=== PATIENT | female | born 1985 | race Caucasian/White ===

== ENCOUNTER 2017-01-18 10:26 | Emergency (ER) | payer OTHER ==
[~2017-01-18] VITALS: Ht 165.1 cm; Wt 89.0 kg
[~2017-01-18 10:26] MED LIST: AMOXICILLIN500 MG PO; METFORMIN HCL500 MG PO; PERCOCET 5/31 TABLET PO; PHENTERMINE H37.5 MG PO; VITAMIN D
[2017-01-18 11:45] LABS: HEMATOCRIT 43.2 % (36.0-46.0); MCH 29.9 PG (29.0-34.0); MCHC 31.9 G/DL (30.0-36.0); MCV 93.5 FL (83-99); MEAN PLAT.VOLUME 11.5 uM^3 (9.5-12.4); PLATELET COUNT 203 K/uL (156-360); RBC DIS.WIDTH-SD 41.5 % (39-53); RED BLOOD COUNT 4.62 M/uL (3.80-5.20); WHITE BLOOD COUNT 5.1 K/uL (4.1-10.2)
[2017-01-18 11:53] LABS: ADD MIUA? YES; BILIRUBIN NEGATIVE; BLOOD NEGATIVE; COLOR YELLOW ((YELLOW)); GLUCOSE (STRIP) NEGATIVE; INTERNAL CONTROL VALID? YES; KETONES NEGATIVE; LEUKOCYTES MODERATE; NITRITE NEGATIVE; PROTEIN (STRIP) NEGATIVE; SPECIFIC GRAVITY 1.014 (1.000-1.030); UROBILINOGEN 0.2 MG/DL (0.2-1.0)
[2017-01-18 11:55] LABS: CHLORIDE 107 mEq/L (99-109)
[2017-01-18 11:56] LABS: POTASSIUM 4.7 mEq/L (3.7-5.4); SODIUM 143 mEq/L (136-147)
[2017-01-18 11:58] LABS: GLUCOSE 89 mg/dL (70-99)
[2017-01-18 11:59] LABS: ANION GAP 11 MEQ/L (2-14)
[2017-01-18 12:00] LABS: TOTAL BILIRUBIN 0.3 mg/dL (0.0-1.0)
[2017-01-18 12:01] LABS: ALKALINE PHOSPHATASE 96 IU/L (3-129); GFR ESTIMATE (CALCULATED) > 59 mL/min/
[2017-01-18 12:03] LABS: UREA NITROGEN (BUN) 11 mg/dL (9-23)
[2017-01-18 13:24] LABS: BACTERIA NONE SEEN /HPF; EPITHELIAL CELLS 1+ /HPF; MUCUS 2+ /LPF; RED BLOOD CELLS NONE SEEN /HPF (0-5); UCUL ADDED? NO; WHITE BLOOD CELLS NONE SEEN /HPF (0-5)
[2017-01-18] MEDS ORDERED: CLOTRIMAZOLE VG (15:44)
[2017-01-18] MEDS ORDERED: BENTYL20 MG PO (15:44)
[2017-01-18] MEDS ORDERED: COLACE100 MG PO (15:44)
[2017-01-18 16:08] VITALS: BP 96/73
[2017-01-18 22:08] LABS: CANDIDA DNA PROBE POSITIVE; GARDNERELLA DNA PROBE NEGATIVE; INTERNAL CONTROL VALID? YES
[2017-01-23 12:25] LABS: CHLAMYDIA TRACHOMATIS NEGATIVE; NEISSERIA GONORRHOEAE NEGATIVE
== END 2017-01-18 16:10 | disposition home or self-care (01) ==
LOC: EME 10:26
PROVIDERS: Nurse Practitioner Family
DX: R10.31 Right lower quadrant pain (principal); K59.00 Constipation, unspecified; B37.3 Candidiasis of vulva and vagina; E55.9 Vitamin D deficiency, unspecified
CPT/HCPCS: 74176; 80053; 81003; 84703; 85027; 87210; 87480; 87491; 87510; 87591; 87660; 99281; 99285; J1885; J2405; J3010